=== PATIENT | female | born 1965 | race Caucasian/White ===

== ENCOUNTER 2023-05-29 03:21 | Outpatient (CLI) | payer MEDICARE, SELFPAY ==
[2023-05-29 10:58] LABS: Abs Immature Grans 0.01 10^3/uL (0.0-0.06); Absolute Basophil Count 0.09 10^3/uL (0.0-0.2); Absolute Eosinophil Count 0.27 10^3/uL (0.0-0.7); Absolute Lymphocyte Count 2.08 10^3/uL (1.2-3.4); Basophils % 1.2; Eosinophils % 3.7; HCT 44.9 % (36.0-46.0); Immature Grans % 0.1; Lymphocytes % 28.7; MCHC 33.4 % (32.0-36.0); MCV 93 fL (80-95); MPV 10.6 fL (8.0-11.0); Neutrophils % 55.3; Platelet Count 277 10^3/uL (130-400); RBC 4.84 10^6/uL (3.93-5.22); RDW 13.6 % (11.7-14.6); RDW-SD 46.2 fL; WBC 7.25 10^3/uL (4.4-10.8)
[2023-05-29 11:14] LABS: Hemoglobin A1C 5.4 % (<5.7)
[2023-05-29 11:23] LABS: ALT 21 U/L (14-59); AST 21 U/L (15-37); Albumin 3.5 g/dL (3.4-5.0); Alkaline Phosphatase 71 U/L (46-116); BUN 13 mg/dL (7-18); Bilirubin, Total 0.6 mg/dL (0.2-1.0); CREATININE 0.9 mg/dL (0.55-1.02); Calcium 9.2 mg/dL (8.5-10.1); Calculated LDL 165 mg/dL (<100); Chloride 102 mmol/L (98-107); Cholesterol 242 mg/dL (<200); Estimated GFR 73.64 (mL/min/1.73m2); Glucose 100 mg/dL (74-106); HDL Cholesterol 57 mg/dL (40-60); Potassium 3.5 mmol/L (3.5-5.1); Sodium 140 mmol/L (136-145); TSH (W/Ref FT4) 3.21 uIU/mL (0.36-3.74); Total Protein 7.8 g/dL (6.4-8.2); Triglyceride 104 mg/dL (<150)
== END 2023-05-29 03:22 | disposition home or self-care (01) ==
LOC: LBO 03:21
PROVIDERS: PCP Nurse Practitioner Family; Visit Provider Nurse Practitioner Family
DX: E03.9 Hypothyroidism, unspecified (principal); E55.9 Vitamin D deficiency, unspecified; E78.5 Hyperlipidemia, unspecified; G47.33 Obstructive sleep apnea (adult) (pediatric); G89.29 Other chronic pain; I10 Essential (primary) hypertension; J44.9 Chronic obstructive pulmonary disease, unspecified; J45.909 Unspecified asthma, uncomplicated; M06.9 Rheumatoid arthritis, unspecified; M79.7 Fibromyalgia; Z78.0 Asymptomatic menopausal state; R73.09 Other abnormal glucose
CPT/HCPCS: 36415; 80053; 80061; 83036; 84443; 85025

== ENCOUNTER → 2023-06-05 02:32 | Outpatient (CLI) | payer MEDICARE, SELFPAY ==
--- NOTE | 2023-06-05 07:00 | DI.CTLCSR_ITS ---
Exam(s) CT CHEST LUNG CANCER SCREEN EXAM: CT CHEST LUNG CANCER SCREEN CLINICAL HISTORY: Screening for lung cancer,former smoker, z87.781 TECHNIQUE: Imaging Protocol: Axial computed tomography images with coronal and sagittal reformatted images were created and reviewed. Low dose screening protocol. COMPARISON: No exams were available for comparison FINDINGS: Tracheobronchial tree: No bronchiectasis or mucus plugging.. Mediastinum and Shirin: No dominant adenopathy or fluid collection. Pulmonary parenchyma: No consolidation or dominant measurable mass. No visible emphysematous changes. Lung Nodules: Multiple scattered calcified granulomas bilaterally. 4 millimeter noncalcified pleural based nodule left lower lobe.. Pleura: No effusion. No pneumothorax. Heart: The heart is not dilated. Mild coronary artery calcifications are seen. Aorta: Thoracic aorta non-dilated. Upper abdomen: Unremarkable. Bones: Unremarkable for age. Soft Tissues: Unremarkable. IMPRESSION: No suspicious pulmonary nodules. Lung RADS Cat 2 - Benign Appearance / Behavior: Nodules with a very low likelihood of becoming a clin ically active cancer due to size or lack of growth Lung-RADS 1.0 CATEGORIES: Category 0 - Prior chest CT exam(s) being located for comparison. Category 1 - Annual screening in 12 months. No nodules or definitely benign nodules. Category 2 - Annual screening in 12 months. Benign appearance. Nodules with low likelihood of becomin g active cancer. Category 3 - 6-month follow-up. Probably benign. Short-term follow-up suggested. Nodules with low lik elihood of becoming active cancer. Category 4A - 3-month follow-up and CT/PET if >8 mm in size. Suspicious finding. Findings which requi re additional testing. Category 4B - Findings which require additional testing and tissue sampling. Category 4X - Category 3 or 4 nodules with additional features or imaging findings that increases the suspicion of malignancy. Modifier S- Potentially clinically significant findings (non lung cancer) RADIATION DOSE DELIVERED: 72.97mGy.cm Total DLP DATA REPOSITORY: All CT scans at this facility are submitted to the National Radiology Data Registry (NRDR) Dose Index Registry (DIR) with the [employer] (ACR). RADIATION OPTIMIZATION: All CT scans at this facility use at least one of these dose optimization te chniques: automated exposure control; mA and/or kV adjustment per patient size (includes targeted exa ms where dose is matched to clinical indication); or iterative reconstruction.
--- NOTE | 2023-06-05 07:00 | DI.MAMMO_ITS ---
Exam(s) MAMMO SCREENING EXAM: MAMMO SCREENING CLINICAL HISTORY: screening,z12.39 TECHNIQUE: Mammograms were interpreted according to the usual protocol including computer analysis w waygum CAD system, tomosynthesis and C-view imaging. COMPARISON: 2011 through 2021 from [facility] imaging FINDINGS: The breasts are composed of scattered fibroglandular densities, Breast Density category B. No suspicious masses or suspicious microcalcifications are seen. No skin thickening or abnormal axillary lymph nodes are seen. There has been no significant change from prior exams. IMPRESSION: BI-RADS Category 1, Negative mammogram Yearly screening mammography is recommended. Breast Density - Category B, scattered fibroglandular densities. A negative radiographic report should not delay biopsy if a dominant or clinically suspicious mass is present. Up to ten percent of cancers are not identified on mammography. A negative report may reinforce clinical impression. Adenosis and dense breasts may obscure an underlying neoplasm. False positive reports average 6 to 10%. Patient will receive a letter notifying them of these results.
== END ==
PROVIDERS: PCP Nurse Practitioner Family; Visit Provider Nurse Practitioner Family
DX: Z87.891 Personal history of nicotine dependence (principal); Z12.31 Encounter for screening mammogram for malignant neoplasm of breast; Z12.2 Encounter for screening for malignant neoplasm of respiratory organs
CPT/HCPCS: 71271; 77063; 77067

== ENCOUNTER → 2023-06-06 12:43 | Outpatient (BNVA) | payer MEDICARE, SELFPAY | PROVIDERS: PCP Nurse Practitioner Family; Referring Provider Nurse Practitioner Family; Visit Provider Student in an Organized Health Care Education/Training Program | DX: J44.9 Chronic obstructive pulmonary disease, unspecified (principal); J45.909 Unspecified asthma, uncomplicated; G47.33 Obstructive sleep apnea (adult) (pediatric) | CPT/HCPCS: 99205 ==

== ENCOUNTER → 2023-08-06 10:13 | Outpatient (CLI) | payer MEDICARE, SELFPAY ==
--- NOTE | 2023-08-06 11:13 | DI.RAD_ITS ---
Exam(s) XR FOOT LT COMPLETE EXAM: XR FOOT LT COMPLETE CLINICAL HISTORY: M79.672 acute left foot pain. TECHNIQUE: 2D digital imaging was performed. Three views. COMPARISON: No exams were available for comparison FINDINGS: BONES: No acute fracture is present. No bony destructive lesion is seen. Small plantar calcaneal spu r. JOINTS: No dislocation present. SOFT TISSUE: Normal. IMPRESSION: Unremarkable radiographs of the left foot. DATA REPOSITORY: RADIATION DOSE DELIVERED:
== END ==
PROVIDERS: PCP Nurse Practitioner Family; Visit Provider Nurse Practitioner Family
DX: M79.672 Pain in left foot (principal)
CPT/HCPCS: 73630

== ENCOUNTER 2023-08-15 01:29 | Outpatient (CLI) | payer MEDICARE, SELFPAY ==
[2023-08-15 12:19] LABS: ALT 54 U/L (14-59); AST 23 U/L (15-37); Albumin 3.5 g/dL (3.4-5.0); Alkaline Phosphatase 89 U/L (46-116); Anion Gap 5.3 mmol/L (3-11); BUN 15 mg/dL (7-18); Bilirubin, Total 1.2 mg/dL (0.2-1.0); CO2 32.7 mmol/L (21.0-32.0); CREATININE 0.9 mg/dL (0.55-1.02); Calcium 8.8 mg/dL (8.5-10.1); Chloride 100 mmol/L (98-107); Estimated GFR 73.64 (mL/min/1.73m2); Glucose 95 mg/dL (74-106); Sodium 138 mmol/L (136-145); Total Protein 7.5 g/dL (6.4-8.2)
== END 2023-08-15 01:30 | disposition home or self-care (01) ==
PROVIDERS: PCP Nurse Practitioner Family; Visit Provider Nurse Practitioner Family
DX: Z51.81 Encounter for therapeutic drug level monitoring (principal)
CPT/HCPCS: 36415; 80053

== ENCOUNTER 2023-08-22 02:37 | Outpatient (CLI) | payer MEDICARE, SELFPAY ==
[2023-08-22] MEDS: Levalbuterol HFA 15 GM INH 4 PUFF IH (11:44)
[2023-08-22] MEDS: Inhaler, Assist Device 1 EACH MC (11:44)
--- NOTE | 2023-08-22 12:47 | W.PFT ---
Date of service: 08/22/23 Time of Service: 09:59 Pulmonary Function Test Result Indications: COPD Interpretation Spirometry: There is moderate airflow limitation. There is a significant bronchodilator response. Lung Volumes: There is air trapping Diffusion Capacity: Normal diffusion Airway Pressure: Increased airways resistance Impression Moderate airflow limitation with a bronchodilator response, air trapping and increased resistance. Clinical Correlation therefore is recommended.
== END 2023-08-22 02:38 | disposition home or self-care (01) ==
LOC: RT 02:37
PROVIDERS: PCP Nurse Practitioner Family; Visit Provider Student in an Organized Health Care Education/Training Program
DX: J44.9 Chronic obstructive pulmonary disease, unspecified (principal)
CPT/HCPCS: 94060; 94726; 94729

== ENCOUNTER → 2023-09-04 08:59 | Outpatient (BNVA) | payer MEDICARE, SELFPAY | PROVIDERS: PCP Nurse Practitioner Family; Referring Provider Nurse Practitioner Family; Visit Provider Physician Assistant Surgical | DX: G47.33 Obstructive sleep apnea (adult) (pediatric) (principal); Z87.891 Personal history of nicotine dependence; J44.89 Other specified chronic obstructive pulmonary disease | CPT/HCPCS: 99214 ==

== ENCOUNTER → 2023-10-06 03:56 | Outpatient (CLI) | payer MEDICARE, SELFPAY ==
--- NOTE | 2023-10-06 07:00 | DI.DEXA_ITS ---
Exam(s) XR DEXA BONE DENSITY W/WO MINA EXAM: XR DEXA BONE DENSITY W/WO MINA CLINICAL HISTORY: screening for osteoporosis in postmenopausal state,z78.0 TECHNIQUE: [employer] C densitometer analysis of left hip and left forearm. Lateral survey im age of the thoracic and lumbar spine. COMPARISON: No exams were available for comparison FINDINGS: Lateral view of the thoracic and lumbar spine shows no evidence of compression fractures. Bone mineral density measurements of the lumbar spine were not performed due to presence of hardware at L4-L5. Bone mineral density measurements of the left hip correspond to a total T-score of 0.5. The femoral neck T-score is -0.7. Theleft forearm bone mineral density measurements correspond to a T-score of the distal 3rd of -1.3, in the osteopenic range.. IMPRESSION: Normal bone mineral density of the lumbar spine. Mild osteopenia of the forearm.
== END ==
PROVIDERS: PCP Nurse Practitioner Family; Visit Provider Nurse Practitioner Family
DX: Z78.0 Asymptomatic menopausal state (principal); Z13.820 Encounter for screening for osteoporosis; M85.89 Other specified disorders of bone density and structure, multiple sites
CPT/HCPCS: 77080

== ENCOUNTER → 2023-12-04 09:31 | Outpatient (BNVA) | payer MEDICARE, SELFPAY | PROVIDERS: PCP Nurse Practitioner Family; Referring Provider Nurse Practitioner Family; Visit Provider Physician Assistant Surgical | DX: J44.89 Other specified chronic obstructive pulmonary disease (principal); G47.33 Obstructive sleep apnea (adult) (pediatric); Z87.891 Personal history of nicotine dependence | CPT/HCPCS: 99214 ==

== ENCOUNTER → 2024-01-08 11:19 | Outpatient (BNVA) | payer MEDICARE, SELFPAY | PROVIDERS: PCP Nurse Practitioner Family; Referring Provider Nurse Practitioner Family; Visit Provider Internal Medicine Critical Care Medicine | DX: J45.50 Severe persistent asthma, uncomplicated (principal) | CPT/HCPCS: 96372 ==

== ENCOUNTER → 2024-02-10 09:15 | Outpatient (BNVA) | payer MEDICARE, SELFPAY | PROVIDERS: PCP Nurse Practitioner Family; Referring Provider Nurse Practitioner Family; Visit Provider Podiatrist | DX: M76.72 Peroneal tendinitis, left leg (principal); M20.22 Hallux rigidus, left foot; M21.612 Bunion of left foot; M06.9 Rheumatoid arthritis, unspecified; G62.9 Polyneuropathy, unspecified | CPT/HCPCS: 99214 ==

== ENCOUNTER → 2024-03-09 09:30 | Outpatient (BNVA) | payer MEDICARE, SELFPAY | PROVIDERS: PCP Nurse Practitioner Family; Referring Provider Nurse Practitioner Family; Visit Provider Physician Assistant Surgical | DX: J44.89 Other specified chronic obstructive pulmonary disease (principal); G47.33 Obstructive sleep apnea (adult) (pediatric); Z87.891 Personal history of nicotine dependence | CPT/HCPCS: 99214 ==

== ENCOUNTER → 2024-03-18 09:17 | Outpatient (BNVA) | payer MEDICARE, SELFPAY | PROVIDERS: PCP Nurse Practitioner Family; Referring Provider Nurse Practitioner Family; Visit Provider Podiatrist | DX: M76.72 Peroneal tendinitis, left leg (principal); M20.22 Hallux rigidus, left foot; M21.612 Bunion of left foot; M06.9 Rheumatoid arthritis, unspecified; G62.9 Polyneuropathy, unspecified | CPT/HCPCS: 99213 ==

== ENCOUNTER → 2024-06-08 09:52 | Outpatient (BNVA) | payer MEDICARE, SELFPAY | PROVIDERS: PCP Nurse Practitioner Family; Referring Provider Nurse Practitioner Family; Visit Provider Physician Assistant Surgical ==

== ENCOUNTER 2024-06-08 10:26 | Outpatient (CLI) | payer MEDICARE, SELFPAY ==
--- NOTE | 2024-06-08 10:15 | DI.RAD_ITS ---
Exam(s) XR SHOULDER LT COMPLETE 2+V EXAM: XR SHOULDER LT COMPLETE 2+V CLINICAL HISTORY: shoulder pain with motion,m25.519. TECHNIQUE: 2D digital imaging was performed. COMPARISON: No exams were available for comparison FINDINGS: Five views No evidence of acute fracture or dislocation of glenohumeral and AC joints. No clavicle fracture. There is a calcification in the lateral subacromial space just above the greater tuberosity, this davis suring 5 x 3 mm consistent with calcific rotator cuff tendinitis. No other soft tissue calcification s noted. No significant narrowing of the glenohumeral joint evident. No osseous lesions. Incidentally noted are multiple tiny calcification in granulomas in the lungs, most probably related to prior varicella infection IMPRESSION: 5 x 3 mm calcification in soft tissues as described above, probably rotator cuff calcific tendinitis DATA REPOSITORY: RADIATION DOSE DELIVERED:
== END 2024-06-08 10:46 ==
PROVIDERS: PCP Nurse Practitioner Family; Visit Provider Physician Assistant Surgical
DX: M75.32 Calcific tendinitis of left shoulder (principal)
CPT/HCPCS: 99214; G0296; 73030

== ENCOUNTER 2024-06-11 00:51 | Outpatient (CLI) | payer MEDICARE, SELFPAY ==
--- NOTE | 2024-06-11 07:00 | DI.MAMMO_ITS ---
Exam(s) MAMMO SCREENING EXAM: MAMMO SCREENING CLINICAL HISTORY: screening,Z12.39. TECHNIQUE: Bilateral full field digital CC and MLO mammographic images were obtained with 3D tomosyn thesis and utilizing computer aided detection (CAD). COMPARISON: Prior mammograms were reviewed. FINDINGS: There has been no significant change in the appearance and distribution of the fibroglandular tissue. No CAD designations. There are no new spiculated masses nor malignant appearing microcalcification groups. There is no significant architectural distortion nor skin thickening-retraction. IMPRESSION: No radiographic evidence of malignancy. BI-RADS Category 1 - Negative Breast Density - Category B - Scattered areas of fibroglandular density Breast density Category C or D implies that the patient has dense breast tissue. Dense breast tissue can make it harder to find cancer on a mammogram. Dense breast tissue is also associated with an incr eased risk of breast cancer. This information about the result of the mammogram report was provided to the patient to raise their awareness. Use this report when you speak with the patient about their risks for breast cancer, which includes their family history. At that time, you may recommend additional screening tests (Ultrasoun d or MRI) as these tests may add significant information. A negative radiographic report should not delay biopsy if a dominant or clinically suspicious mass is present. Up to ten percent of cancers are not identified on mammography. A negative report may reinforce clinical impression. Adenosis and dense breasts may obscure an underlying neoplasm. False positive reports average 6 to 10%. Patient will receive a letter notifying them of these results.
== END 2024-06-11 01:11 ==
LOC: DI 00:51
PROVIDERS: PCP Nurse Practitioner Family; Visit Provider Nurse Practitioner Family
DX: Z12.31 Encounter for screening mammogram for malignant neoplasm of breast (principal); R92.323 Mammographic fibroglandular density, bilateral breasts
CPT/HCPCS: 77063; 77067

== ENCOUNTER 2024-06-11 00:51 | Outpatient (CLI) | payer MEDICARE, SELFPAY ==
--- NOTE | 2024-06-11 07:00 | DI.CTLCSR_ITS ---
Exam(s) CT CHEST LUNG CANCER SCREEN EXAM: CT CHEST LUNG CANCER SCREEN CLINICAL HISTORY: Screening for lung cancer,FORMER SMOKER, Z87.891. TECHNIQUE: Imaging Protocol: Low Dose Technique CONTRAST MATERIAL: None COMPARISON: CT CT CHEST LUNG CANCER SCREEN from 06/05/2023 FINDINGS: CHEST: LUNGS: Again noted are multiple small calcified granulomas throughout both lung perry. The largest of these is again noted right upper lobe measuring 5 mm. Average size of the calcified granulomas is 2 mm. There are also a few unchanged noncalcified 2 mm nodules bilaterally again noted unchanged. There is also pleural based noncalcified 4 millimeter nodule in the anterior basal segment of the lef t lower lobe which is unchanged.. There are no new concerning lung nodules. No new infiltrates. No pleural effusions. MEDIASTINUM: There is no obvious hilar nor mediastinal adenopathy. CARDIAC: Heart size is normal. There is no pericardial effusion.Caliber of the thoracic aorta is wit hin normal limits. OTHER: Cholelithiasis noted. OSSEOUS: No significant osseous lesions.. IMPRESSION: 1. Multiple benign calcified and noncalcified lung nodules which are unchanged from prior CT scan of 06/05/2023. 2. No new ominous pulmonary nodules, infiltrates, pleural effusions, nor intrathoracic adenopathy. 3. Lung RADS Cat 2 - Benign Appearance / Behavior: Nodules with a very low likelihood of becoming a c linically active cancer due to size or lack of growth Lung-RADS 1.0 CATEGORIES: Category 0 - Prior chest CT exam(s) being located for comparison. Category 1 - Annual screening in 12 months. No nodules or definitely benign nodules. Category 2 - Annual screening in 12 months. Benign appearance. Nodules with low likelihood of becomin g active cancer. Category 3 - 6-month follow-up. Probably benign. Short-term follow-up suggested. Nodules with low lik elihood of becoming active cancer. Category 4A - 3-month follow-up and CT/PET if >8 mm in size. Suspicious finding. Findings which requi re additional testing. Category 4B - Findings which require additional testing and tissue sampling. Category 4X - Category 3 or 4 nodules with additional features or imaging findings that increases the suspicion of malignancy. Modifier S- Potentially clinically significant findings (non lung cancer) RADIATION DOSE DELIVERED: 32.1mGy.cm Total DLP DATA REPOSITORY: All CT scans at this facility are submitted to the National Radiology Data Registry (NRDR) Dose Index Registry (DIR) with the [employer] (ACR). RADIATION OPTIMIZATION: All CT scans at this facility use at least one of these dose optimization te chniques: automated exposure control; mA and/or kV adjustment per patient size (includes targeted exa ms where dose is matched to clinical indication); or iterative reconstruction.
== END 2024-06-11 01:11 ==
LOC: DI 00:51
PROVIDERS: PCP Nurse Practitioner Family; Visit Provider Physician Assistant Surgical
DX: Z87.891 Personal history of nicotine dependence (principal); Z12.2 Encounter for screening for malignant neoplasm of respiratory organs
CPT/HCPCS: 71271

== ENCOUNTER 2024-06-14 03:10 | Outpatient (CLI) | payer MEDICARE, SELFPAY ==
[2024-06-14 07:54] LABS: ALT 25 U/L (14-59); AST 17 U/L (15-37); Albumin 3.4 g/dL (3.4-5.0); Alkaline Phosphatase 76 U/L (46-116); Anion Gap 4.6 mmol/L (3-11); BUN 19 mg/dL (7-18); CO2 36.4 mmol/L (21.0-32.0); CREATININE 1.2 mg/dL (0.55-1.02); Calcium 9.5 mg/dL (8.5-10.1); Chloride 101 mmol/L (98-107); Estimated GFR 51.82 (mL/min/1.73m2); Glucose 100 mg/dL (74-106); Potassium 3.6 mmol/L (3.5-5.1); Sodium 142 mmol/L (136-145); Total Protein 7.2 g/dL (6.4-8.2)
[2024-06-14 07:58] LABS: Abs Immature Grans 0.01 10^3/uL (0.0-0.06); Absolute Basophil Count 0.09 10^3/uL (0.0-0.2); Absolute Eosinophil Count 0.19 10^3/uL (0.0-0.7); Absolute Lymphocyte Count 3.47 10^3/uL (1.2-3.4); Absolute Monocyte Count 0.74 10^3/uL (0.1-0.8); Absolute Neutrophil Count 3.92 10^3/uL (1.2-6.7); Basophils % 1.1 %; Eosinophils % 2.3 %; HCT 42.9 % (36.0-46.0); Immature Grans % 0.1 %; Lymphocytes % 41.2 %; MCH 31.5 pg (27.0-33.0); MCHC 32.6 % (32.0-36.0); MCV 97 fL (80-95); MPV 10.3 fL (8.0-11.0); Monocytes % 8.8 %; Neutrophils % 46.5 %; Platelet Count 279 10^3/uL (130-400); RBC 4.44 10^6/uL (3.93-5.22); RDW 13.9 % (11.7-14.6); RDW-SD 49.1 fL; WBC 8.42 10^3/uL (4.4-10.8)
[2024-06-14 08:02] LABS: Calculated LDL 169 mg/dL (<100); Cholesterol 260 mg/dL (<200); HDL Cholesterol 73 mg/dL (40-60); TSH (W/Ref FT4) 4.96 uIU/mL (0.36-3.74); Triglyceride 94 mg/dL (<150)
[2024-06-14 08:50] LABS: FREE T4 1.12 ng/dL (0.76-1.46)
== END 2024-06-14 03:11 | disposition home or self-care (01) ==
PROVIDERS: Student in an Organized Health Care Education/Training Program; PCP Nurse Practitioner Family; Visit Provider Nurse Practitioner Family
DX: E03.9 Hypothyroidism, unspecified (principal); E78.5 Hyperlipidemia, unspecified; Z00.00 Encounter for general adult medical examination without abnormal findings; M12.811 Other specific arthropathies, not elsewhere classified, right shoulder; M12.812 Other specific arthropathies, not elsewhere classified, left shoulder; M79.7 Fibromyalgia
CPT/HCPCS: 36415; 80053; 80061; 84439; 84443; 85025

== ENCOUNTER 2024-07-19 02:19 | Outpatient (CLI) | payer MEDICARE, SELFPAY ==
[2024-07-19 12:21] LABS: HCT 39.7 % (36.0-46.0); HGB 13.5 g/dL (11.2-15.7); MCH 30.8 pg (27.0-33.0); MCV 91 fL (80-95); MPV 9.4 fL (8.0-11.0); Platelet Count 357 10^3/uL (130-400); RBC 4.38 10^6/uL (3.93-5.22); RDW 13.2 % (11.7-14.6); RDW-SD 43.4 fL; WBC 10.71 10^3/uL (4.4-10.8)
[2024-07-19 13:09] LABS: Anion Gap 6.4 mmol/L (3-11); BUN 11 mg/dL (7-18); CO2 33.6 mmol/L (21.0-32.0); CREATININE 0.9 mg/dL (0.55-1.02); Calcium 9.4 mg/dL (8.5-10.1); Chloride 97 mmol/L (98-107); Estimated GFR 73.19 (mL/min/1.73m2); Glucose 110 mg/dL (74-106); Sodium 137 mmol/L (136-145)
== END 2024-07-19 02:20 | disposition home or self-care (01) ==
PROVIDERS: PCP Nurse Practitioner Family; Visit Provider Nurse Practitioner Family
DX: I10 Essential (primary) hypertension (principal); M06.9 Rheumatoid arthritis, unspecified
CPT/HCPCS: 36415; 80048; 85027

== ENCOUNTER → 2024-08-13 10:10 | Outpatient (BNVA) | payer MEDICARE, SELFPAY | PROVIDERS: PCP Nurse Practitioner Family; Referring Provider Nurse Practitioner Family; Visit Provider Surgery | DX: Z12.11 Encounter for screening for malignant neoplasm of colon (principal) ==

== ENCOUNTER 2024-08-27 07:01 | Day surgery (SDC) | payer MEDICARE, SELFPAY ==
[2024-08-27 07:18] VITALS: BP 116/84; PULSE 64; RESP 18; TEMP 36.8; O2SAT 99
[2024-08-27] MEDS: Lactated Ringers 1,000 ML 80 ML IV (07:38)
--- NOTE | 2024-08-27 07:53 | ANES.PREOP_ITS ---
General Info Date of Service Date Performed: 08/27/24 Height: 5 ft Weight: 77.5 kg Body Mass Index (BMI): 33.3 Surgical Procedure: Operation Date: 08/27/24 08:20 Proposed Procedure Side Surgeon destiny NEVES MD Meds Allergies and Home Medications Allergies Allergy/AdvReac Type Severity Reaction Status Date / Time ibuprofen Allergy Intermediate angioedema Verified 08/27/24 07:10 Penicillins Allergy Intermediate Anaphylaxis Verified 08/27/24 07:10 lisinopril AdvReac Intermediate Anaphylaxis Uncoded 08/27/24 07:10 Home Medication ?Medication ?Instructions ?Recorded azelastine 137 mcg (0.1 %) nasal 1 spray intranasal BID 04/02/23 spray cetirizine 10 mg capsule (Zyrtec) 10 mg PO DAILY PRN 05/16/23 multivitamin 1 tab PO DAILY 05/16/23 folic acid 1 mg tablet 1 mg PO DAILY #90 tabs 06/20/23 dupilumab 300 mg/2 mL subcutaneous 300 mg (2 mL) subcut Q2W #4 mL 12/08/23 pen injector ([employer]) ipratropium bromide 42 mcg (0.06 2 spray intranasal QID PRN allergy 03/09/24 %) nasal spray symptoms #15 mL mupirocin 2 % topical ointment 1 applic topical BID 03/09/24 adalimumab 40 mg/0.4 mL 40 mg subcut DIRECTED 05/24/24 subcutaneous pen kit (Humira(CF) Rheumatoid arthritis Pen) cyclobenzaprine 5 mg tablet 5 mg PO QHS PRN muscle spasm #60 05/24/24 tabs budesonide 160 mcg-glycopyr 9 See Rx Instructions .Route 06/21/24 mcg-formot 4.8 mcg/actuation HFA .COMPLEX #10.7 grams inhaler (Breztri Aerosphere) hydrochlorothiazide 12.5 mg tablet 12.5 mg PO DAILY #90 tabs 07/20/24 levothyroxine 25 mcg capsule 25 mcg PO DAILY #126 caps 07/22/24 potassium chloride 10 mEq 10 meq PO DAILY #90 tabs 07/26/24 tablet,extended release duloxetine 30 mg capsule,delayed 30 mg PO BID #180 caps 08/09/24 release bisacodyl 5 mg tablet,delayed 5 mg PO ONCE Colonoscopy Bowel 08/13/24 release Prep #4 tabs polyethylene glycol 3350 17 238 g PO ONCE #238 grams 08/13/24 gram/dose oral powder albuterol sulfate 90 mcg/actuation 2 puff inhalation Q6H PRN 08/23/24 aerosol inhaler shortness of breath or wheezing #8.5 grams cholecalciferol (vitamin D3) 50 50 mcg PO DAILY #90 caps 08/23/24 mcg (2,000 unit) capsule ketoconazole 2 % shampoo 1 applic topical .Q3-4 week #120 mL 08/23/24 methotrexate sodium 2.5 mg tablet 20 mg PO QWEEK 08/23/24 pregabalin 75 mg capsule (Lyrica) 75 mg PO BID #60 caps 08/23/24 gabapentin 300 mg capsule 300 mg PO TID 08/25/24 Current Visit Medications: Current Medications Generic Name Dose Route Start Last Admin Trade Name Freq PRN Reason Stop Dose Admin Ringer's Solution 1,000 mls @ 80 mls/hr 08/27/24 06:00 08/27/24 07:38 IV 08/27/24 23:59 80 mls/hr INFUSION DANIEL Administration IV Miscellaneous Supplies 1 each 08/27/24 06:00 Iv Access IV 08/27/24 23:59 DIRECTED DANIEL Sodium Chloride 0 ml 08/27/24 06:00 Normal Saline Flush 10 Ml Syr IV 08/27/24 23:59 PRN PRN Sodium Chloride 0 ml 08/27/24 06:00 Normal Saline 10 Ml Vial IJ 08/27/24 23:59 DIRECTED PRN Sterile Water 0 ml 08/27/24 06:00 Water,Injection,Sterile 10 Ml Vial IJ 08/27/24 23:59 DIRECTED PRN PFSH Active Problems Active Problems: Problem Status Onset Code Shoulder pain Acute M25.519 Bilateral rotator cuff syndrome Acute M75.101, M75.102 Neuropathy Acute G62.9 Bunion, left foot Acute M21.612 Hallux rigidus, left foot Acute M20.22 Peroneal tendinitis, left leg Acute M76.72 Asthma-COPD overlap syndrome Acute J44.89 Personal history of nicotine dependence Acute Z87.891 Vitamin D deficiency Acute E55.9 Chronic pain Chronic G89.29 Fibromyalgia Acute M79.7 DJD (degenerative joint disease) Chronic M19.90 Hyperlipidemia Acute E78.5 Hypothyroid Chronic E03.9 RUSSELL (obstructive sleep apnea) Chronic G47.33 Rheumatoid arthritis Chronic M06.9 Hypertension Chronic I10 Medical History Medical History Fusion of lumbar spine 2018 [facility]. -hb Asthma Postmenopausal COPD (chronic obstructive pulmonary disease) (~2019) Asthma Surgical History Surgical History History of foot surgery 2021 [facility]. -hb Tobacco Smoking/Tobacco Use Status: Current-Occasional Tobacco Type: e-cigarettes Smokeless tobacco user: other Passive smoking exposure: Yes Second hand exposure: Yes Counseling given: other Alcohol Alcohol Intake: never Substance Use Substance use: Never Substance use type: does not use Vital Signs and Lab Results Vital Signs Most Recent Vital Signs in EMR: Most Recent Vital Signs Temp Pulse Resp BP Pulse Ox 36.8 C 64 18 116/84 99 08/27/24 07:18 08/27/24 07:18 08/27/24 07:18 08/27/24 07:18 08/27/24 07:18 Lab Results Blood Type / Crossmatch: No Data to Display Complete Blood Count: No Data to Display Complete Metabolic Panel: No Data to Display Liver Function Panel: No Data to Display Coagulation Panel: No Data to Display Cardiac Panel: No Data to Display Arterial Blood Gas: No Data to Display Venous Blood Gas: No Data to Display Pancreas Panel: No Data to Display Thyroid Panel: No Data to Display Infectious Disease: No Data to Display Blood Cultures: No Data to Display Toxicology Panel: No Data to Display Imaging and Studies Imaging and Studies Study information below may be from another EMR and interpreted by another provider. Please see original notes in EMR for more complete details. Pulmonary Function Summary: Date of service: 08/22/23 Time of Service: 09:59 Pulmonary Function Test Result Indications: COPD Interpretation Spirometry: There is moderate airflow limitation. There is a significant bronchodilator response. Lung Volumes: There is air trapping Diffusion Capacity: Normal diffusion Airway Pressure: Increased airways resistance Impression Moderate airflow limitation with a bronchodilator response, air trapping and increased resistance. Clinical Correlation therefore is recommended. Anesthesia Assessment and Plan Anesthesia History Personal History: No History of Anesthesia Complications Family History: No Family History of Anesthesia Complications Exercise Tolerance Exercise Tolerance: Metabolic Equivalents<4 Pertinent Negatives Pertinent Negatives: No Symptoms of GERD, No Major Cardiovascular Symptoms or Complaints and No Major Pulmonary Symptoms or Complaints Cardiac & Pulmonary Exam Cardiac Exam: Normal S1/S2 Heart Sounds Pulmonary Exam: Clear Bilateral Breath Sounds Cardiac and Pulmonary Comment:: Asthma/Copd, continues to use e-cigarettes Implantable Cardiac Device Does patient have a Pacemaker or an ICD?: No Airway Exam Known Difficult Airway: No Mallampati Class: 3 Mouth Opening: Normal (> 3cm) Thyromental Distance: Greater than 3 cm Neck Range of Motion: Full ROM Neck Circumference: Normal Teeth Condition: Edentulous (dentures out) ASA Classification ASA Score: ASA 3 Emergency Case?: No NPO Status NPO Status: NPO Clears >2 hours, Solids >8 hours Anesthesia Plan Resuscitation Status: Full Code Anesthesia Technique: General Anesthesia Airway Planned: Natural Airway Monitors Used: Standard Monitors Preoperative Comments:: No recent CPAP use due to poor seal, no home O2, states breathing feels good today.
[2024-08-27 08:34] VITALS: BMI 33.3
[2024-08-27 09:15] VITALS: BP 143/81; PULSE 83; RESP 17; TEMP 36.4; O2SAT 93
--- NOTE | 2024-08-27 09:15 | W.PM.OP ---
Operative Note Operative Note PRE-OP DIAGNOSIS: Colon cancer screening POST-OP DIAGNOSIS: other (Colon polyp) PROCEDURE: Colonoscopy SURGEON: Hunter Cam[place] [facility] ANESTHESIA TYPE: MAC Refer to Anesthesia Record PATHOLOGY: other (Sigmoid colon polyp) COMPLICATIONS: None Findings: 1 subcentimeter polyp Procedure Description: After obtaining informed consent, patient was brought back to the endoscopy suite. She was turned in the left side and connected to the monitors. Timeout was performed. Propofol was administered by the nurse refrigeration technician. I began by performing a digital rectal exam. This was unremarkable. I inserted the colonoscope and advanced the length of the colon. I attained the cecum as identified by the appendiceal orifice and the ileocecal valve. I intubated the ileocecal valve to view the terminal ileum. The terminal ileum had normal appearance. I withdrew into the cecum. The prep was good. Cecum had a normal appearance. I withdrew along the ascending colon, transverse colon, descending colon, and sigmoid colon. In the sigmoid colon I removed a pedunculated 4 mm polyp with a cold biopsy forcep. This was sent to pathology. No diverticular disease was noted. I withdrew into the rectum. I did retroflex. This was all unremarkable. I decompressed the sigmoid and the rectum and withdrew the scope entirely. Patient tolerated well. She went to recovery in stable condition. Disposition: Patient will be discharged home later today. We will call her with the pathology report. She should have a repeat colonoscopy in 7 years, pending pathology. Date of Procedure: 08/27/24
[2024-08-27 09:38] VITALS: BP 139/81; PULSE 80; RESP 20; TEMP 36.5; O2SAT 96
--- NOTE | 2024-08-27 09:41 | W.ANESPOSTOP ---
Postoperative Evaluation Date, Time and Location Date Performed: 08/27/24 Time Performed: 09:15 Patient Location: Day Surgery Unit Vital Signs Most Recent Imported Vital Signs: Most Recent Vital Signs Temp Pulse Resp BP Pulse Ox 36.5 C 80 20 139/81 96 08/27/24 09:38 08/27/24 09:38 08/27/24 09:38 08/27/24 09:38 08/27/24 09:38 Pain Score Most Recent Pain Score: Most Recent Pain Score Pain Level 3 08/27/24 07:18 Assessment Mental Status: Awake (Alert & Oriented to Patient Baseline) Airway and Respiratory Function: Patent airway with normal (patient baseline) respiratory exam Cardiovascular Function: Hemodynamically Stable Hydration Status: Adequately Hydrated Nausea & Vomiting: No Nausea or Vomiting Pain: Pt. Denies Any Pain Peripheral Nerve Block: Patient did not receive a nerve block
== END 2024-08-27 09:52 | disposition home or self-care (01) ==
PROVIDERS: PCP Nurse Practitioner Family; Visit Provider Surgery
PROC: 0DJD8ZZ Inspection of Lower Intestinal Tract, Via Natural or Artificial Opening Endoscopic (ICD-10-PCS; CPT 45378; principal; 2024-08-27 08:15)
DX: Z12.11 Encounter for screening for malignant neoplasm of colon (principal); D12.5 Benign neoplasm of sigmoid colon
CPT/HCPCS: 45380; 88305; J2003; J2704

== ENCOUNTER → 2024-09-13 08:30 | Outpatient (BNVA) | payer MEDICARE, SELFPAY | PROVIDERS: PCP Nurse Practitioner Family; Referring Provider Nurse Practitioner Family; Visit Provider Physician Assistant Surgical | DX: J44.89 Other specified chronic obstructive pulmonary disease (principal); G47.33 Obstructive sleep apnea (adult) (pediatric); F17.290 Nicotine dependence, other tobacco product, uncomplicated | CPT/HCPCS: 99214 ==

== ENCOUNTER 2024-11-23 03:01 | Outpatient (CLI) | payer MEDICARE, SELFPAY ==
[2024-11-23 11:39] LABS: Abs Immature Grans 0.01 10^3/uL (0.0-0.06); HCT 41.4 % (36.0-46.0); HGB 13.8 g/dL (11.2-15.7); Immature Grans % 0.2 %; MCH 30.9 pg (27.0-33.0); MCHC 33.3 % (32.0-36.0); MCV 93 fL (80-95); MPV 9.9 fL (8.0-11.0); Platelet Count 273 10^3/uL (130-400); RBC 4.47 10^6/uL (3.93-5.22); RDW 13.9 % (11.7-14.6); RDW-SD 47.1 fL; WBC 5.95 10^3/uL (4.4-10.8)
[2024-11-23 12:00] LABS: ALT 20 U/L (14-59); AST 17 U/L (15-37); Albumin 3.5 g/dL (3.4-5.0); Alkaline Phosphatase 87 U/L (46-116); Anion Gap 4.4 mmol/L (3-11); BUN 13 mg/dL (7-18); Bilirubin, Total 0.5 mg/dL (0.2-1.0); CO2 34.6 mmol/L (21.0-32.0); Calcium 9.1 mg/dL (8.5-10.1); Chloride 100 mmol/L (98-107); Estimated GFR 73.19 (mL/min/1.73m2); Glucose 99 mg/dL (74-106); Potassium 3.5 mmol/L (3.5-5.1); Sodium 139 mmol/L (136-145); Total Protein 7.7 g/dL (6.4-8.2)
== END 2024-11-23 03:02 | disposition home or self-care (01) ==
PROVIDERS: PCP Nurse Practitioner Family; Visit Provider Student in an Organized Health Care Education/Training Program
DX: M79.7 Fibromyalgia (principal); M12.811 Other specific arthropathies, not elsewhere classified, right shoulder; M12.812 Other specific arthropathies, not elsewhere classified, left shoulder; M05.9 Rheumatoid arthritis with rheumatoid factor, unspecified
CPT/HCPCS: 36415; 80053; 85025

== ENCOUNTER 2024-12-09 14:02 | Outpatient (CLI) | payer MEDICARE, SELFPAY ==
--- NOTE | 2024-12-09 12:00 | DI.RAD_ITS ---
Exam(s) XR FOOT RT COMPLETE EXAM: XR FOOT RT COMPLETE CLINICAL HISTORY: M79.671 Pain RT foot, evaluate pathology. TECHNIQUE: 2D digital imaging was performed. Three views. COMPARISON: CR XR FOOT LT COMPLETE from 08/06/2023 FINDINGS: BONES: There is a nondisplaced fracture involving the proximal diaphysis of the proximal phalanx of the 5th toe. No bony destructive lesion is seen. The hardware noted and over the 1st tarsal metatarsal joint and base of 1st metatarsal into the 2nd cuneiform. Screws are noted in the distal 5th metat arsal. Surgical clip noted in the proximal phalanx of the great toe. JOINTS: No dislocation present. SOFT TISSUE: Normal. IMPRESSION: Nondisplaced fracture of proximal phalanx of the 5th toe. DATA REPOSITORY: RADIATION DOSE DELIVERED:
== END 2024-12-09 14:22 ==
LOC: DI 14:03
PROVIDERS: PCP Nurse Practitioner Family; Visit Provider Nurse Practitioner Family
DX: M79.671 Pain in right foot (principal); S92.514A Nondisplaced fracture of proximal phalanx of right lesser toe(s), initial encounter for closed fracture; X58.XXXA Exposure to other specified factors, initial encounter
CPT/HCPCS: 73630

== ENCOUNTER → 2025-03-14 08:31 | Outpatient (BNVA) | payer MEDICARE, SELFPAY | PROVIDERS: PCP Nurse Practitioner Family; Referring Provider Nurse Practitioner Family; Visit Provider Physician Assistant Surgical | DX: G47.33 Obstructive sleep apnea (adult) (pediatric) (principal); J44.89 Other specified chronic obstructive pulmonary disease; Z72.0 Tobacco use | CPT/HCPCS: 99214; G0296 ==

== ENCOUNTER 2025-04-25 01:30 | Outpatient (CLI) | payer MEDICARE, SELFPAY ==
[2025-04-25 09:25] LABS: Abs Immature Grans 0.02 10^3/uL (0.0-0.06); HCT 40.5 % (36.0-46.0); HGB 13.5 g/dL (11.2-15.7); Immature Grans % 0.3 %; MCH 30.3 pg (27.0-33.0); MCHC 33.3 % (32.0-36.0); MCV 91 fL (80-95); MPV 10.1 fL (8.0-11.0); Platelet Count 257 10^3/uL (130-400); RBC 4.45 10^6/uL (3.93-5.22); RDW 13.2 % (11.7-14.6); RDW-SD 43.9 fL; WBC 6.59 10^3/uL (4.4-10.8)
[2025-04-25 10:17] LABS: ALT 16 U/L (10-49); AST 19 U/L (<34); Albumin 4.1 g/dL (3.2-5.0); Alkaline Phosphatase 82 U/L (46-116); Anion Gap 8.8 mmol/L (3-11); BUN 17 mg/dL (9-23); Bilirubin, Total 0.40 mg/dL (0.2-1.2); CO2 30.2 mmol/L (20.0-31.0); Calcium 9.1 mg/dL (8.3-10.6); Chloride 102 mmol/L (98-107); Glucose 99 mg/dL (74-106); Potassium 3.5 mmol/L (3.5-5.1); Sodium 141 mmol/L (136-145); Total Protein 7.4 g/dL (5.7-8.2)
== END 2025-04-25 01:31 | disposition home or self-care (01) ==
LOC: LBO 01:30
PROVIDERS: PCP Nurse Practitioner Family; Visit Provider Student in an Organized Health Care Education/Training Program
DX: Z79.899 Other long term (current) drug therapy (principal); M05.79 Rheumatoid arthritis with rheumatoid factor of multiple sites without organ or systems involvement; M25.512 Pain in left shoulder; G89.29 Other chronic pain; M75.32 Calcific tendinitis of left shoulder
CPT/HCPCS: 36415; 80053; 85025

== ENCOUNTER → 2025-05-18 08:19 | Outpatient (CLI) | payer MEDICARE, SELFPAY ==
--- NOTE | 2025-05-18 09:02 | DI.MRI_ITS ---
Exam(s) MR UPPER JOINT LT WO EXAM: MR UPPER JOINT LT WO CLINICAL HISTORY: M05.79,M25.512,M75.32,Z79.889 LT shoulder pain and calcific tendonitis. TECHNIQUE: Multiplanar multisequence MRI was performed. COMPARISON: plain films 08 June 2024 FINDINGS: Exam is limited by motion. BONES: There is no fracture or contusion pattern. JOINTS:The acromioclavicular joint shows minimal degenerative changes. The glenohumeral joint is normal. TENDONS: Supraspinatus: Some thickening and intermediate signal, consistent with tendinosis. The small calcification noted on plain films is visible within the tendon. Infraspinatus: Unremarkable. Subscapularis: Unremarkable. Teres Minor: Unremarkable. Biceps and Nemo: Unremarkable. MUSCLES: Unremarkable. GLENOID LABRUM: Unremarkable on this noncontrast examination. SOFT TISSUES: Unremarkable. BURSAE: Subacromial and subdeltoid bursae shows a small amount of fluid. There is a tiny amount of fluid in the subcoracoid bursa.. IMPRESSION: Supraspinatus calcific tendinosis. Small amount of fluid in the subacromial subdeltoid bursa could indicate bursitis. DATA REPOSITORY:
== END ==
LOC: DI 08:19
PROVIDERS: PCP Nurse Practitioner Family; Visit Provider Student in an Organized Health Care Education/Training Program
DX: M05.79 Rheumatoid arthritis with rheumatoid factor of multiple sites without organ or systems involvement (principal); M25.512 Pain in left shoulder; G89.29 Other chronic pain; M75.32 Calcific tendinitis of left shoulder; Z79.899 Other long term (current) drug therapy
CPT/HCPCS: 73221